=== PATIENT | male | born 1975 | race Two or more races ===

== ENCOUNTER 2017-04-27 03:46 | Emergency (ER) | payer BC ==
[~2017-04-27] VITALS: Ht 172.7 cm; Wt 93.0 kg
[2017-04-27 03:51] VITALS: BP 129/98
[2017-04-27] MEDS ORDERED: SYNTHROID125 MCG ORAL (03:51)
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
[2017-04-27] MEDS ORDERED: PERCOCET 5-3251 EACH ORAL (04:24)
[2017-04-27 04:59] VITALS: BP 139/89
--- NOTE | 2017-04-27 11:09 | Diagnostic Imaging Report ---
Indication: Fracture ulnar postreduction Technique: XRAY FOREARM 2 VIEWS RIGHT Comparison: Current examination obtained at 0447 compared with one obtained earlier 04/27/2017 0410. Findings: Overlying plaster now obscures detail. Comminuted fracture of the distal ulnar shaft inadequate alignment is noted. There is no dislocation of the wrist or elbow. Impression: Fracture of the distal ulnar shaft inadequate alignment. Overlying plaster obscures detail.
--- NOTE | 2017-04-27 11:09 | Diagnostic Imaging Report ---
Indication: Trauma with pain Technique: XRAY FOREARM 2 VIEWS RIGHT Comparison: None. Findings: There is a comminuted fracture of the distal ulnar shaft. No dislocation of the elbow or wrist. The remainder the bones are unremarkable. Alignment is adequate. Impression: Comminuted fracture of the distal ulnar shaft in adequate alignment.
== END 2017-04-27 05:01 ==
LOC: EMR 04:17
DX: S52.202A Unspecified fracture of shaft of left ulna, initial encounter for closed fracture (principal); Y04.0XXA Assault by unarmed brawl or fight, initial encounter; Y92.89 Other specified places as the place of occurrence of the external cause
CPT/HCPCS: 99284